=== PATIENT | male | born 1960 | race Caucasian/White ===

== ENCOUNTER 2016-08-28 13:34 | Emergency (ER) | payer OTHER ==
[~2016-08-28] VITALS: Ht 177.8 cm; Wt 142.9 kg
--- NOTE | ~2016-08-28 | EKG ---
[address] [address] ELECTROCARDIOGRAM REPORT Name: CAMERON ANN Room #: [facility]#: [id number] Admission: 08/28/16 Attend Phys: Discharge: 08/28/16 Date of : 64 Report #: [id number] THIS REPORT FOR: //name// [facility] ED Test Date: 2016-08-28 Test Time: 14:23:13 Pat Name: CAMERON ANN Department: Room: Gender: M Building Cleaning Supervisor: MZOOK : 1960 Requested By: Jalen Day Order Number: [id number] MD: Michael Norris Measurements Intervals [place] Rate: 99 P: 13 AR: 155 QRS: -5 QRSD: 99 T: 19 QT: 325 QTc: 417 Interpretive Statements Sinus rhythm Baseline wander in lead(s) II No previous ECG available for comparison Electronically Signed On 08-30-2016 13:20:09 CDT by Michael Norris [email or web address] <ELECTRONICALLY SIGNED> By: Michael Norris MD 08/30/16 1320 1423 1423 Michael Norris MD /[email or web address]
[~2016-08-28 13:34] MED LIST: ALLOPURINOL 30300 M1 PO; AMLODIPINE BESYL5 MG PO; APAP500; FLONASE 0.05%50 MCG NASAL; KEFLEX500 MG PO; LISINOPRIL-HCT1 EAC1 PO; SIMVASTATIN40 MG; TOPROL XL50 MG PO; ZYRTEC10 M2 PO
[2016-08-28] MEDS ORDERED: ELIQUIS5 MG PO (14:26)
[2016-08-28 14:28] LABS: HEMATOCRIT 43.7 % (42.0-52.0); HEMOGLOBIN 14.8 gm/dL (14.0-18.0); MCH 33.8 pg (26.0-34.0); MCHC 33.9 g/dL (28.0-37.0); MCV 99.6 fL (80.0-100.0); PLATELET COUNT 183 thou/uL (150-400); RBC 4.39 mil/uL (4.50-6.00); WBC 16.6 thou/uL (4.0-11.0)
[2016-08-28] MEDS ORDERED: FOLIC ACID1 MG PO (14:29)
[2016-08-28] MEDS ORDERED: TREXALL10 MG PO (14:29)
[2016-08-28 14:30] LABS: MANUAL DIFF YES
[2016-08-28 14:46] LABS: ALBUMIN 3.2 g/dL (3.4-5.0); CALCIUM 8.8 mg/dL (8.5-10.1); CREATININE 1.6 mg/dL (0.6-1.3); DIRECT BILIRUBIN 0.1 mg/dL (<0.1-0.3); POTASSIUM 4.1 mmol/L (3.5-5.1); TOTAL BILIRUBIN 0.5 mg/dL (<0.1-1.0); TOTAL PROTEIN 6.4 g/dL (6.4-8.2)
[2016-08-28 14:54] LABS: NT-PRO BRAIN NAT PEPTIDE 121 pg/mL (<300); TROPONIN-I < 0.04 ng/mL (<0.04-0.07)
[2016-08-28 15:17] LABS: ABSOLUTE NEUTROPHILS 4.6 thou/uL (1.4-8.2); ANISOCYTOSIS 1+; ATYPICAL LYMPHS 1 %; TOTAL CELL COUNT 100
[2016-08-28 15:18] LABS: POIKILOCYTOSIS SLIGHT; POLYCHROMASIA OCCASIONAL
[2016-08-28 19:19] VITALS: BP 95/62
== END 2016-08-28 19:20 | disposition short-term general hospital (02) ==
LOC: ER 13:34
PROVIDERS: Nurse Practitioner
DX: R50.9 Fever, unspecified (principal); R10.13 Epigastric pain; E86.0 Dehydration; I10 Essential (primary) hypertension; E78.00 Pure hypercholesterolemia, unspecified; C91.10 Chronic lymphocytic leukemia of B-cell type not having achieved remission